=== PATIENT | male | born 1950 | race Caucasian/White ===

== ENCOUNTER 2020-08-13 21:23 | Emergency (ER) | payer OTHER, MEDICARE ==
[~2020-08-13] VITALS: Ht 165.1 cm; Wt 65.9 kg
--- NOTE | 2020-08-13 21:30 | NUR ---
BROTHER MACHO. [phone]. FOR INFO CALL AND HAS MEDICATION RECORDS, ABLE TO FAX TO US
[2020-08-13 23:30] LABS: BASOPHILS # (AUTO) 0.1 X10'3 (0-0.2); CLARITY,URINE CLEAR (Clear); COLOR,URINE YELLOW (Yellow); EOSINOPHILS # (AUTO) 0.5 X10'3 (0-0.9); EOSINOPHILS % (AUTO) 7.3 % (0-6); GLUCOSE, URINE NEGATIVE (Neg); HEMATOCRIT 35.5 % (42.0-52.0); HEMOGLOBIN 12.1 g/dl (14.0-17.9); KETONES,URINE NEGATIVE (Neg); LEUKOCYTE ESTERASE ,URINE NEGATIVE (Neg); LYMPHOCYTES # (AUTO) 1.9 X10'3 (1.1-4.8); LYMPHOCYTES % (AUTO) 27.1 % (21-51); MEAN CORPUSCULAR HEMOGLOBIN 33.8 PG (27.0-31.0); MEAN CORPUSCULAR HGB CONC 34.1 g/dL (33.0-36.5); MEAN CORPUSCULAR VOLUME 99.4 FL (78-98); MEAN PLATELET VOLUME 6.8 FL (7.4-10.4); MONOCYTES % (AUTO) 14.5 % (2-12); NEUTROPHILS # (AUTO) 3.6 X10'3 (1.8-7.7); NEUTROPHILS % (AUTO) 50.1 % (42-75); NITRITES, URINE NEGATIVE (Neg); OCCULT BLOOD,URINE NEGATIVE (Neg); PLATELET COUNT 371 X10'3 (140-440); PROTEIN,URINE NEGATIVE (Neg); RED BLOOD COUNT 3.57 X10'6 (4.70-6.10); RED CELL DISTRIBUTION WIDTH 13.8 % (11.5-14.5); UROBILINOGEN,URINE 0.2 E.U/dL (0.2-1.0); WHITE BLOOD COUNT 7.1 X10'3 (4.5-11.0)
[2020-08-13 23:36] LABS: UA COLLECTION TYPE VOIDED
[2020-08-13 23:38] LABS: ALANINE AMINOTRANSFERASE 32 U/L (12-78); ALBUMIN 3.6 G/DL (3.4-5.0); ALKALINE PHOSPHATASE 70 IU/L (46-116); ANION GAP 3 (8-16); ASPARTATE AMINO TRANSFERASE 24 U/L (10-37); BILIRUBIN,TOTAL 0.4 MG/DL (0.1-1.0); BLOOD UREA NITROGEN 19 MG/DL (7-18); BUN/CREATININE RATIO 19.2 (5.4-32.0); CALCIUM 9.3 MG/DL (8.5-10.1); CHLORIDE 100 MMOL/L (99-107); CREATININE 0.99 MG/DL (0.60-1.10); GLUCOSE 101 MG/DL (70-104); POTASSIUM 4.4 MMOL/L (3.5-5.1); SODIUM 137 MMOL/L (135-145); TOTAL CARBON DIOXIDE 33.9 MMOL/L (24-32); TOTAL PROTEIN 7.3 G/DL (6.4-8.2); eGFR 75 ML/MIN
[2020-08-13 23:41] LABS: URINE AMPHETAMINE SCREEN NEGATIVE (Neg); URINE BARBITUATE SCREEN NEGATIVE (Neg); URINE BENZODIAZEPINES SCREEN NEGATIVE (Neg); URINE CANNABINOID SCREEN NEGATIVE (Neg); URINE COCAINE SCREEN NEGATIVE (Neg); URINE METHADONE SCREEN NEGATIVE (Neg); URINE OPIATE SCREEN POSITIVE (Neg); URINE PHENCYCLIDINE SCREEN NEGATIVE (Neg)
[2020-08-13 23:58] LABS: ACETAMINOPHEN < 2.0 UG/ML (10-30); ETHANOL < 0.010 GM/DL (0.0-0.010)
--- NOTE | 2020-08-14 00:16 | NUR ---
Placed call to Poison control with a list of medications that pt family believed he may have overdosed. Listed was Hydrocodone, morphine, finasteride, gabapentin, calcium, atorvastatin, and zolpidem. Pt states he remembers taking 8 pills, the number he take every night, but cannot definitivley say he took all the correct ones. Poison control notified that patient has been A/OX4 since arrival and denies N/V. VSS. Poison control recommended CBC, CMP, Acetaminophen, salicylic acid levels as well as observation for a total of 6 hrs after ingestion. Pt ingested pills at approx 1800. ordered laboratory tests recommended by Poison Control
[2020-08-14 00:50] VITALS: BP 125/70
== END 2020-08-14 00:54 | disposition home or self-care (01) ==
LOC: ER 21:23
DX: G89.29 Other chronic pain (principal); T42.6X5A Adverse effect of other antiepileptic and sedative-hypnotic drugs, initial encounter; J44.9 Chronic obstructive pulmonary disease, unspecified; R94.6 Abnormal results of thyroid function studies; Z72.89 Other problems related to lifestyle; Y92.89 Other specified places as the place of occurrence of the external cause
CPT/HCPCS: 36415; 80053; 80305; 80320; 80329; 81003; 84443; 85025; 93005; 99284

== ENCOUNTER 2021-04-25 07:03 | Day surgery (SDC) | payer OTHER, MEDICARE ==
[2021-04-18 15:25] LABS: BASOPHILS # (AUTO) 0.1 X10'3 (0-0.2); EOSINOPHILS # (AUTO) 0.3 X10'3 (0-0.9); LYMPHOCYTES # (AUTO) 1.6 X10'3 (1.1-4.8); LYMPHOCYTES % (AUTO) 24.7 % (21-51); MEAN CORPUSCULAR HEMOGLOBIN 33.2 PG (27.0-31.0); MEAN CORPUSCULAR HGB CONC 32.9 g/dL (33.0-36.5); MEAN CORPUSCULAR VOLUME 100.8 FL (78-98); MEAN PLATELET VOLUME 7.2 FL (7.4-10.4); MONOCYTES # (AUTO) 0.9 X10'3 (0-0.9); MONOCYTES % (AUTO) 13.2 % (2-12); NEUTROPHILS # (AUTO) 3.8 X10'3 (1.8-7.7); NEUTROPHILS % (AUTO) 57.1 % (42-75); PRE OP HEMATOCRIT 41.1 % (42.0-52.0); PRE OP HEMOGLOBIN 13.5 g/dL (14.0-17.9); PRE OP PLATELET COUNT 328 X10'3 (140-440); RED BLOOD COUNT 4.08 X10'6 (4.70-6.10); RED CELL DISTRIBUTION WIDTH 14.5 % (11.5-14.5)
[2021-04-18 15:35] LABS: ALBUMIN 3.8 G/DL (3.4-5.0); ALBUMIN/GLOBULIN RATIO 0.9 (1.1-1.5); ALKALINE PHOSPHATASE 127 IU/L (46-116); BLOOD UREA NITROGEN 15 MG/DL (7-18); BUN/CREATININE RATIO 21.7 (5.4-32.0); CALCIUM 9.2 MG/DL (8.5-10.1); CHLORIDE 104 MMOL/L (99-107); CREATININE 0.69 MG/DL (0.60-1.10); PRE OP ALT 42 U/L (30-65); PRE OP ANION GAP 6 (8-16); PRE OP AST 24 U/L (10-37); PRE OP BILIRUB, TOTAL 0.5 MG/DL (0.0-1.0); PRE OP GLUCOSE 97 MG/DL (70-104); PRE OP POTASSIUM 5.2 MMOL/L (3.4-5.1); PRE OP SODIUM 141 MMOL/L (135-145); TOTAL CARBON DIOXIDE 30.9 MMOL/L (24-32); TOTAL PROTEIN 7.9 G/DL (6.4-8.2); eGFR > 90 ML/MIN
[~2021-04-25] VITALS: Ht 160 cm; Wt 64.8 kg
[2021-04-25] VITALS (9 sets, daily range): BP systolic 92–132; BP diastolic 47–77
[~2021-04-25 07:03] MED LIST: ASPI-1 PO; ATOR10TA70 PO; BETA15CR40 TOP; GABA-534 PO; GABA600T13 PO; OSC500T PO; TERA5CAP4 PO; VIT1CAPS46 PO; cefazolin/dext.iso 2gm/50ml 50 ML IV ONE; famotidine 20mg tablet PO ONE; ringers solution, lacted 1,000 ML IV SCH
[2021-04-25] MEDS ORDERED: LIDOcaine 1% 30ml preserv. free vial ONE (07:50)
[2021-04-25] MEDS ORDERED: BUPIVAcaine/PF 2.5mg/ml (0.25%) 10ml vial ONE (07:50)
[2021-04-25 08:04] LABS: ISTAT CREATININE 0.9 mg/dL (0.8-1.3); ISTAT HGB 13.6 g/dl (14.0-18.0); ISTAT IONIZED CALCIUM 1.27 mmol/L (1.03-1.32); ISTAT K 3.9 mmol/L (3.5-5.1); POC BUN/CREATININE RATIO 12.2 (5.4-32.0)
[2021-04-25] MEDS ORDERED: fentaNYL/PF 50MCG/1 ML 2ML syringe ONE (08:55)
[2021-04-25] MEDS ORDERED: sevoflurane 250ml liquid IH ONE (08:57)
[2021-04-25] MEDS ORDERED: propofol inj 20 ML IV ONE (09:23)
[2021-04-25] MEDS ORDERED: rocuronium 10mg/ml inj IV ONE (09:23)
[2021-04-25] MEDS ORDERED: LIDOcaine 2% (20mg/ml) 5ml vial ONE (09:23)
[2021-04-25] MEDS ORDERED: dexamethasone sod phosphate 4mg/ml inj. ONE (09:23)
[2021-04-25] MEDS ORDERED: ringers solution, lacted 1,000 ML IV SCH (09:30)
[2021-04-25] MEDS ORDERED: morphine 2 MG/ML inj. syringe IV PRN (09:30)
[2021-04-25] MEDS ORDERED: HYDROmorphone/PF 0.2 MG/ML SYRINGE IV PRN ×2 (09:30)
[2021-04-25] MEDS ORDERED: ondansetron/PF 4mg/2ml inj IV PRN (09:30)
[2021-04-25] MEDS ORDERED: ondansetron/PF 4mg/2ml inj ONE (09:51)
[2021-04-25] MEDS ORDERED: acetaminophen 1,000mg/100ml IV 100 ML IV ONE (09:51)
[2021-04-25] MEDS ORDERED: glycopyrrolate 0.2mg/ml inj ONE (10:21)
[2021-04-25] MEDS ORDERED: neostigmine methylsulfate 1 MG/ML 10ml vial ONE (10:21)
[2021-04-25] MEDS ORDERED: ePHEDrine 50MG/ML INJ. ONE (10:33)
--- NOTE | 2021-04-25 10:35 | NUR ---
ADMITTED TO PACU FROM OR ACCOMPANIED BY ANESTHESIA. INTIAL PHYSICAL ASSESSMENT DONE AND RECORDED. REPORT RECEIVED FROM ANESTHESIA.
[2021-04-25] MEDS ORDERED: oxyCODONE/APAP 10/325mg tablet PO ONE (10:45)
--- NOTE | 2021-04-25 12:00 | NUR ---
DISCHARGE CRITERIA MET, DISCHARGE INSTRUCTIONS GIVEN, DEMONSTRATES VERBAL UNDERSTANDING. DISCHARGED HOME IN GOOD CONDITION.
== END 2021-04-25 12:00 | disposition home or self-care (01) ==
LOC: PAS 07:03
PROVIDERS: ATTEND Surgery
DX: K40.90 Unilateral inguinal hernia, without obstruction or gangrene, not specified as recurrent (principal); M40.299 Other kyphosis, site unspecified; Z90.81 Acquired absence of spleen; Z98.890 Other specified postprocedural states; Z79.899 Other long term (current) drug therapy; F17.210 Nicotine dependence, cigarettes, uncomplicated
CPT/HCPCS: 36415; 49505; 80047; 80053; 82948; 85025; 93005; C1781; J0131; J1100; J2001; J2405; J2704; J2710; J3010; J3490; U0003; U0005; Z7506; Z7508; Z7512; A4215; A4314; A4618; J7120

== ENCOUNTER 2022-05-11 14:31 | Emergency (ER) | payer OTHER, MEDICARE ==
[~2022-05-11] VITALS: Ht 165.1 cm; Wt 70.5 kg
[~2022-05-11 14:31] MED LIST changes: -cefazolin/dext.iso 2gm/50ml 50 ML IV ONE; -famotidine 20mg tablet PO ONE; -ringers solution, lacted 1,000 ML IV SCH
[2022-05-11] MEDS ORDERED: ketorolac tromethamine 15mg/ml inj. IM ONE (16:42)
[2022-05-11 17:02] VITALS: BP 122/68
== END 2022-05-11 17:05 | disposition home or self-care (01) ==
LOC: ER 14:31
DX: G58.9 Mononeuropathy, unspecified (principal); G89.29 Other chronic pain; M54.9 Dorsalgia, unspecified; J44.9 Chronic obstructive pulmonary disease, unspecified; I51.9 Heart disease, unspecified; Z79.899 Other long term (current) drug therapy; Z79.82 Long term (current) use of aspirin
CPT/HCPCS: 29125; 99284; L3908